=== PATIENT | female | born 1970 | race Caucasian/White ===

== ENCOUNTER 2018-06-03 15:36 | Emergency (ER) | payer OTHER | END 2018-06-03 19:00 | disposition home or self-care (01) | LOC: M ED 15:36 | DX: R60.9 Edema, unspecified (principal); Z76.0 Encounter for issue of repeat prescription; F41.9 Anxiety disorder, unspecified; Z85.41 Personal history of malignant neoplasm of cervix uteri; Z72.0 Tobacco use; Z79.899 Other long term (current) drug therapy | CPT/HCPCS: 99283 ==